=== PATIENT | female | born 1955 | race Caucasian/White ===

== ENCOUNTER 2017-10-13 15:12 | Outpatient (CLI) | payer MEDICARE, MEDICAID | END 2017-10-13 15:13 | disposition home or self-care (01) | LOC: BICMAMMO 15:12 | PROVIDERS: ATTEND Family Medicine | DX: Z12.31 Encounter for screening mammogram for malignant neoplasm of breast (principal); R92.1 Mammographic calcification found on diagnostic imaging of breast | CPT/HCPCS: 77063; 77067 ==

== ENCOUNTER 2017-12-15 08:28 | Outpatient (CLI) | payer MEDICARE, MEDICAID ==
--- NOTE | 2017-12-15 10:42 | ULT ---
BILATERAL RENAL SONOGRAM: Date: 12/15/17 HISTORY: Chronic renal disease. History of renal stones. FINDINGS: The right kidney measures 11.8 cm x 6.0 cm. The left kidney measures 12.2 cm x 5.3 cm. There is promi nence of each renal pelvis without caliceal dilatation. Findings may be attributable to prominent ext rarenal pelves. Kidneys otherwise have a normal sonographic appearance without evidence of a renal ma ss, renal calculus, or perinephric fluid collection seen. Renal cortical thickness is lower limits of normal. Limited visualized right hepatic lobe demonstrates increased echogenicity suggesting diffuse fatty in filtration. Urinary bladder has a normal sonographic appearance. Ureteral jets are seen bilaterally on color flow evaluation. IMPRESSION: Normal appearing bilateral kidneys without evidence of hydronephrosis. There are prominent extrarenal pelves bilaterally. POS: CHRISTI
== END 2017-12-15 08:29 | disposition home or self-care (01) ==
LOC: SCSULT 08:28
PROVIDERS: ATTEND Internal Medicine Nephrology
DX: N18.3 Chronic kidney disease, stage 3 (moderate) (principal)
CPT/HCPCS: 76770

== ENCOUNTER 2019-07-25 07:04 | Outpatient (CLI) | payer MEDICARE, MEDICAID ==
--- NOTE | 2019-07-26 09:24 | NM ---
EXAM: CARDIAC SPECT HISTORY: Chest pain TECHNIQUE: A myocardial perfusion scan was performed using the single isotope 1 day protocol with rocio hnetium 99m sestamibi. [10 mCi] was injected intravenously for the rest exam followed by 30 mCi for the stress study. Exercise stress was monitored and interpreted by CITLALI Ochoa FINDINGS: Homogeneous tracer distribution is seen in the myocardial segments on stress and rest image s without fixed or reversible defects. Gated SPECT LVEF: 62% Wall motion exam: Normal IMPRESSION: Normal myocardial perfusion scan
== END 2019-07-25 07:05 | disposition home or self-care (01) ==
LOC: NM 07:04
PROVIDERS: ATTEND Student in an Organized Health Care Education/Training Program
DX: R07.9 Chest pain, unspecified (principal)
CPT/HCPCS: 78452; 93017; A9500

== ENCOUNTER 2019-08-15 14:33 | Outpatient (CLI) | payer MEDICARE, MEDICAID ==
--- NOTE | 2019-08-15 15:19 | MMO ---
Bilateral MAMMO Bilat Screen [facility]. CLINICAL HISTORY: Patient is 64 years old and is seen for screening. The patient has no family history of breast cancer. The patient has no personal history of cancer. VIEWS: The views performed were: bilateral craniocaudal with tomosynthesis and bilateral mediolateral oblique with tomosynthesis. FILMS COMPARED: The present examination has been compared to prior imaging studies performed at [facility] on 12/01/2014, 07/07/2016 and 10/13/2017, and at [facility] on 12/22/2008. This study has been interpreted with the assistance of computer-aided detection. MAMMOGRAM FINDINGS: There are scattered fibroglandular densities. There are stable benign appearing calcifications seen in the right breast. There are no suspicious masses, suspicious calcifications, or new areas of architectural distortion. IMPRESSION: THERE IS NO MAMMOGRAPHIC EVIDENCE OF MALIGNANCY. A ROUTINE FOLLOW-UP MAMMOGRAM IN 1 YEAR IS RECOMMENDED. THE RESULTS OF THIS EXAM WERE SENT TO THE PATIENT. ACR BI-RADS Category 2 - Benign finding MAMMOGRAPHY NOTE: 1. A negative mammogram report should not delay a biopsy if a dominant of clinically suspicious mass is present. 2. Approximately 10% to 15% of breast cancers are not detected by mammography. 3. Adenosis and dense breasts may obscure an underlying neoplasm. Reported by: JO ANN QUINN MD Electonically Signed: [id number]
== END 2019-08-15 14:34 | disposition home or self-care (01) ==
LOC: BICMAMMO 14:33
PROVIDERS: ATTEND Student in an Organized Health Care Education/Training Program
DX: Z12.31 Encounter for screening mammogram for malignant neoplasm of breast (principal)
CPT/HCPCS: 77063; 77067

== ENCOUNTER 2019-10-09 13:37 | Outpatient (CLI) | payer MEDICARE, MEDICAID ==
--- NOTE | 2019-10-09 14:20 | BD ---
Exam: DEXA Bone Density 10/09/19 COMPARISON: None. HISTORY: Postmenopausal female undergoing screening for osteoporosis. Lumbar Spine: BMD (g/cm2) T-SCORE L1 1.101 1.0 L2 1.099 0.6 L3 1.227 1.3 L4 1.207 1.3 L1-L4 1.160 1.0 Femoral Neck: 0.924 0.7 Total Femur: 1.115 1.4 The FRAX-WHO fracture risk assessment tool is not reported as all T-Scores are at or above 1.0. Impression: Normal bone mineral density examination. Transcribed Date/Time: 10/09/2019 2:37 PM
== END 2019-10-09 13:38 | disposition home or self-care (01) ==
LOC: BICMAMMO 13:37
PROVIDERS: ATTEND Family Medicine
DX: R74.8 Abnormal levels of other serum enzymes (principal); R74.0 Nonspecific elevation of levels of transaminase and lactic acid dehydrogenase [LDH]
CPT/HCPCS: 77080

== ENCOUNTER 2020-11-27 14:06 | Outpatient (CLI) | payer MEDICARE, MEDICAID | END 2020-11-27 14:07 | disposition home or self-care (01) | LOC: BICMAMMO 14:06 | PROVIDERS: ATTEND Student in an Organized Health Care Education/Training Program | DX: Z12.31 Encounter for screening mammogram for malignant neoplasm of breast (principal) | CPT/HCPCS: 77063; 77067 ==

== ENCOUNTER 2022-12-07 13:31 | Outpatient (CLI) | payer OTHER ==
[2022-12-07 14:35] LABS: #Basophils 0.1 10x3/uL (0.0-0.2); #Eosinphils 0.4 10x3/uL (0.0-0.5); #Monocytes 0.7 10x3/uL (0.0-1.1); #Neutrophils 7.3 10x3/uL (1.5-8.4); %Basophils 0.4 % (0.0-2.0); %Eosinophils 3.1 % (0.0-6.0); %Lymphocytes 27.6 % (18.0-47.0); %Monocytes 6.3 % (0.0-10.0); Hemoglobin 13.7 g/dL (12.0-15.5); Mean Corpuscular Hemoglobin 32.4 pg (27.0-33.0); Mean Corpuscular Volume 98.1 fl (81.6-98.3); Mean Platelet Volume 10.2 fl (7.4-10.4); Platelet Count 356 10x3/uL (150-450); RBC Distribution Width 13.3 % (11.5-14.5); Red Blood Cell (RBC) Count 4.23 10x6/uL (3.90-5.03); White Blood Cell (WBC) Count 11.8 10x3/uL (3.5-10.5)
== END 2022-12-07 13:32 | disposition home or self-care (01) ==
LOC: LABBT 13:31
PROVIDERS: ATTEND Orthopaedic Surgery Hand Surgery
DX: Z01.818 Encounter for other preprocedural examination (principal); M72.0 Palmar fascial fibromatosis [Dupuytren]
CPT/HCPCS: 85025; 93005; 93010

== ENCOUNTER 2022-12-09 08:27 | Day surgery (SDC) | payer OTHER ==
[2022-12-08 11:26] VITALS: BMI 38.7
[2022-12-09] MEDS ORDERED: Bupivacaine PF 0.5% 30 ML VIAL ONE (09:40)
[2022-12-09] MEDS ORDERED: Betamet Acet/Betamet Na Ph 30 MG/5 ML VIAL ONE (09:40)
[2022-12-09] MEDS ORDERED: Bacitracin Zinc Ointment 30 gm TUBE ONE (09:41)
[2022-12-09] MEDS ORDERED: Neomycin-Polymyxin 1 ML AMP ONE (09:41)
[2022-12-09] MEDS ORDERED: CEFAZOLIN 2 GM VIAL ONE (11:08)
[2022-12-09] MEDS ORDERED: Sodium Chloride 0.9% 100 ML ONE (11:08)
[2022-12-09] MEDS ORDERED: fentaNYL PF 100 MCG/2 ML SYRINGE ONE (11:14)
[2022-12-09] MEDS ORDERED: Ondansetron PF 4 MG/2 ML Vial ONE (11:15)
[2022-12-09] MEDS ORDERED: Ketorolac Tromethamine 30 MG/ML VIAL ONE (11:15)
[2022-12-09] MEDS ORDERED: Lidocaine 1% PF 5 ML VIAL ONE (11:15)
[2022-12-09] MEDS ORDERED: Phenylephrine 10 MG/ML VIAL ONE (11:15)
[2022-12-09] MEDS ORDERED: PROPOFOL 200 MG/20 ML VIAL ONE (11:15)
[2022-12-09] MEDS ORDERED: Dexamethasone 20 MG/5 ML VIAL ONE (11:15)
== END 2022-12-09 13:46 | disposition home or self-care (01) ==
LOC: SDC 08:27
PROVIDERS: ATTEND Orthopaedic Surgery Hand Surgery
PROC: 0JNK0ZZ Release Left Hand Subcutaneous Tissue and Fascia, Open Approach (ICD-10-PCS; principal; 2022-12-09)
DX: M72.0 Palmar fascial fibromatosis [Dupuytren] (principal); G56.02 Carpal tunnel syndrome, left upper limb; F17.210 Nicotine dependence, cigarettes, uncomplicated; I10 Essential (primary) hypertension; E78.5 Hyperlipidemia, unspecified; G89.4 Chronic pain syndrome; G62.9 Polyneuropathy, unspecified; E66.9 Obesity, unspecified; Z68.38 Body mass index [BMI] 38.0-38.9, adult; Z79.899 Other long term (current) drug therapy
CPT/HCPCS: 88304; J0702; J1100; J1885; J2370; J2405; J2704; J3490; S0020